=== PATIENT | male | born 1960 | race Caucasian/White ===

== ENCOUNTER 2017-05-16 17:15 | Emergency (ER) | payer SELFPAY ==
[~2017-05-16] VITALS: Ht 182.9 cm; Wt 99.8 kg
[2017-05-16 17:32] VITALS: BP 188/95
== END 2017-05-16 19:39 | disposition left against medical advice (07) ==
LOC: ER 17:37
DX: M79.672 Pain in left foot (principal); M79.671 Pain in right foot; Z53.21 Procedure and treatment not carried out due to patient leaving prior to being seen by health care provider

== ENCOUNTER 2017-05-21 08:59 | Emergency (ER) | payer MEDICAID ==
[~2017-05-21] VITALS: Ht 185.4 cm; Wt 99.8 kg
[2017-05-21 09:57] VITALS: BP 151/103
== END 2017-05-21 10:24 | disposition home or self-care (01) ==
LOC: ER 08:59
DX: E11.42 Type 2 diabetes mellitus with diabetic polyneuropathy (principal)

== ENCOUNTER 2018-12-31 09:05 | Emergency (ER) | payer MEDICAID ==
[~2018-12-31] VITALS: Ht 182.9 cm; Wt 108.9 kg
[2018-12-31 09:15] VITALS: BP 132/87
== END 2018-12-31 10:05 | disposition home or self-care (01) ==
LOC: ER 09:10
DX: M79.672 Pain in left foot (principal); M79.671 Pain in right foot; G89.29 Other chronic pain; E11.9 Type 2 diabetes mellitus without complications; Z76.0 Encounter for issue of repeat prescription

== ENCOUNTER 2019-02-02 12:46 | Emergency (ER) | payer MEDICAID ==
[~2019-02-02] VITALS: Ht 182.9 cm; Wt 108.9 kg
[2019-02-02 13:19] VITALS: BP 126/89
== END 2019-02-02 14:18 | disposition home or self-care (01) ==
LOC: ER 12:48
DX: M79.671 Pain in right foot (principal); M79.672 Pain in left foot; E11.9 Type 2 diabetes mellitus without complications; Z76.0 Encounter for issue of repeat prescription

== ENCOUNTER 2019-10-28 08:36 | Inpatient (IN) | payer MEDICAID ==
[~2019-10-28] VITALS: Ht 182.9 cm; Wt 109.0 kg
[2019-10-28] MEDS ORDERED: SODIUM CHLORIDE 0.9% 1,000 ML IV ONE ×2 (09:44)
[2019-10-28] MEDS ORDERED: PIPERACILLIN-TAZOB 3.375GM 100 ML IV ONE (09:45)
[2019-10-28 10:14] LABS: Basophils # (auto) 0 10 ^3/uL (0-0.2); Basophils % (auto) 0.3 % (0.0-2.0); Eosinophils # (auto) 0.1 10 ^3/uL (0-0.8); Eosinophils % (auto) 0.6 % (0.0-7.0); Hematocrit 40.1 % (41.0-53.0); Hemoglobin 13.5 g/dL (13.5-17.5); Lymphocytes # (auto) 1.2 10 ^3/uL (0.4-5.4); Lymphocytes % (auto) 7.8 % (10.0-50.0); Mean Corpuscular Hemoglobin 30.3 pg (28.0-32.0); Mean Corpuscular Hgb Conc. 33.6 g/dL (32.0-36.0); Monocytes # (auto) 1.4 10 ^3/uL (0-1.3); Neutrophils # (auto) 12.7 10 ^3/uL (1.6-8.6); Neutrophils % (auto) 82.3 % (37.0-80.0); Platelet Count (auto) 225 10^3/uL (140-450); Red Blood Cells 4.45 10^6/uL (4.5-5.90); White Blood Cell 15.5 10^3/uL (4.4-10.8)
[2019-10-28 10:30] LABS: INR 1.01 (0.9-1.15); Partial Thromboplastin Time 33.3 sec (23.64-32.05)
[2019-10-28 10:36] LABS: Albumin 3.2 g/dL (3.4-5.0); Anion Gap 7 (5-15); Blood Urea Nitrogen 20 mg/dL (7-18); Calcium 8.8 mg/dL (8.5-10.1); Carbon Dioxide 25 mmol/L (21-32); Chloride 103 mmol/L (98-107); Glucose 170 mg/dL (74-106); Potassium 4.8 mmol/L (3.5-5.1); Sodium 135 mmol/L (136-145)
[2019-10-28 10:42] LABS: Alanine Aminotransferase 21 U/L (16-61); Alkaline Phosphatase 89 U/L (45-117); Aspartate Aminotransferase 14 U/L (15-37); BUN/Creatinine Ratio 16.4; Bilirubin, Total 1.4 mg/dL (0.2-1.0); GFR African American 78 mL/min; GFR Non-African American 65 mL/min; Total Protein 8.4 g/dL (6.4-8.2)
[2019-10-28] MEDS ORDERED: SODIUM CHLORIDE 0.9% 1,000 ML IV SCH (10:56)
[2019-10-28] MEDS ORDERED: CLINDAMYCIN 900MG IV 50 ML IV ONE (11:00)
[2019-10-28] MEDS ORDERED: levoFLOXacin 500MG 100 ML IV ONE (11:00)
[2019-10-28] MEDS ORDERED: TETANUS-DIPTH-ACEL PERTUSSIS 0.5ML SYR Tdap IM ONE (11:00)
[2019-10-28] MEDS ORDERED: DEXTROSE (50%) 50ML SYRG IV PRN (11:00)
[2019-10-28] MEDS ORDERED: LACTULOSE 20Gm/30ML SOLN PO PRN (11:00)
[2019-10-28] MEDS ORDERED: ACETAMINOPHEN 500 MG TAB PO PRN (11:00)
[2019-10-28] MEDS ORDERED: traMADol HCL 50 MG TAB PO PRN (11:00)
[2019-10-28] MEDS ORDERED: PROMETHAZINE HCL 25 MG/ML 1ML IV PRN (11:00)
[2019-10-28] MEDS ORDERED: KETOROLAC TROMETH 30 MG/ML 1ML VIAL IV ONE (11:30)
[2019-10-28] MEDS ORDERED: KETOROLAC TROMETH 15 mg/ml 1ML VL IV PRN (11:30)
[2019-10-28] MEDS ORDERED: KETOROLAC TROMETH 30 MG/ML 1ML VIAL IV PRN (11:30)
[2019-10-28] MEDS ORDERED: KETOROLAC TROMETH 15 mg/ml 1ML VL IV ONE (11:30)
[2019-10-28] MEDS: InsuLIN REG 1unit/0.01ml Soln (100units/ml) SC SCH ×3 (11:30→21:31)
--- NOTE | 2019-10-28 12:00 | NUR ---
MS admit from ER VIVI MISHRA admitted to tele/MS after report was received. Patient oriented to GABRIELA GEORGE, primary RN, unit, room, bed, and unit policies regarding patient care and visiting hours. Patient weighed by bedscale and encouraged to call if they need something. All questions and concerns addressed, patient verbalized understanding.
[2019-10-28 13:00] VITALS: BP 146/76
[2019-10-28] MEDS: ACCU-CHEK COMFORT CURVE STRIP VI SCH ×3 (13:38→21:29)
--- NOTE | 2019-10-28 13:54 | NUR ---
Medications Patient does not know the names and doses of the medications he takes at home. He said he takes oral medication for diabetes and HTN.
[2019-10-28] MEDS: CLINDAMYCIN 600MG IV 50 ML IV SCH ×2 (14:12→21:26)
--- NOTE | 2019-10-28 15:00 | NUR ---
Left foot wound care Patient has an order for WOC consult and Podiatry consult. This nurse cleaned the area and covered it with a bandaid. Also covered with non-skid socks to protect the area further and also decrease risk of falls.
[2019-10-28 17:00] VITALS: BP 113/71
[2019-10-28] MEDS: SODIUM CHLORIDE 0.9% 1,000 ML IV SCH ×2 (17:41→21:28)
--- NOTE | 2019-10-28 18:20 | NUR ---
WOUND CARE NOTE: Wound care in to see patient per wound care request regarding "L Foot" wound that are noted present on admission. Patient is 59 years old male with admitting diagnosis of L Foot Cellulitis. Patient with history of DM and htn. Patient is resting in bed in Rm. 283. Patient is awake, alert and oriented. Patient is in no stated pain at this time. He's ambulatory and self turning and repositioning. His Arnel score is 17. Skin/wound assessment done with assistance of patient's nurse, ALLYSSA piña. Patient's distal L plantar foot at metatarsal head has open full thickness wound measuring 3x1cm with no measurable depth. Wound is red with yellow slough, diallo wound is bright red and edematous more prominently in dorsal aspect of L foot. Minimal serous drainage noted, no odor noted. Pedal pulse present. Patient reported that he stepped on a nail and it went trough his shoes. He added that "about half an inch" goes trough his plantar foot, however it looks like the wound closed and no measurable depth when probed with cotton tip swab. Cleansed patient's L foot wound with NS. Bedside nurse took specimen for wound culture and sent to lab for processing. Photograph of patient's wound are taken for reference. Applied Thera honey gel to open wound area and covered with Opti foam gentle dressing per MD order. Patient tolerated well and denies any other wound. Patient has podiatry consult order. RECOMMENDATION: Nursing to continue with Daily/PRN dressing change to L foot wound per MD order,Dietary consult for wound, elevate affected extremity on pillow, continue monitoring by wound care while patient is hospitalized. Addendum: 10/28/19 at 1849 by Samantha Sorto RN Amended: Links added.
--- NOTE | 2019-10-28 19:00 | NUR ---
OPENING NOTE PATIENT IN BED, RESTING, DENIES DISCOMFORT. PATIENT WAS WORRY ABOUT HIS TRUCK ON THE PARKING LOT, CALLED SECURITY TO MAKE SURE HIS TRUCK WAS NOT GOING TO BE TOWED AWAY. PATIENT WAS A LOT MORE CALM AFTER THIS WAS HANDLE. CALL LIGHT WITH IN REACH, BED ON LOWEST POSITION.
[2019-10-28 21:50] VITALS: BP 126/67
[2019-10-29] MEDS: CLINDAMYCIN 600MG IV 50 ML IV SCH ×2 (05:20→15:00)
[2019-10-29 05:24] VITALS: BP 130/73
[2019-10-29] MEDS: InsuLIN REG 1unit/0.01ml Soln (100units/ml) SC SCH ×3 (06:07→17:36)
[2019-10-29] MEDS: ACCU-CHEK COMFORT CURVE STRIP VI SCH ×3 (06:07→17:31)
[2019-10-29 07:27] LABS: Basophils # (auto) 0.1 10 ^3/uL (0-0.2); Basophils % (auto) 0.6 % (0.0-2.0); Eosinophils # (auto) 0.1 10 ^3/uL (0-0.8); Eosinophils % (auto) 0.8 % (0.0-7.0); Hematocrit 36.8 % (41.0-53.0); Hemoglobin 12.5 g/dL (13.5-17.5); Lymphocytes # (auto) 1.3 10 ^3/uL (0.4-5.4); Lymphocytes % (auto) 11.7 % (10.0-50.0); Mean Corpuscular Hemoglobin 30.2 pg (28.0-32.0); Mean Corpuscular Hgb Conc. 33.9 g/dL (32.0-36.0); Mean Corpuscular Volume 89.1 fL (80.0-100.0); Monocytes # (auto) 0.9 10 ^3/uL (0-1.3); Monocytes % (auto) 7.5 % (0.0-12.0); Neutrophils # (auto) 9.1 10 ^3/uL (1.6-8.6); Neutrophils % (auto) 79.4 % (37.0-80.0); Nucleated Red Blood Cells % 0.2 %; Platelet Count (auto) 237 10^3/uL (140-450); Red Blood Cells 4.13 10^6/uL (4.5-5.90); White Blood Cell 11.5 10^3/uL (4.4-10.8)
[2019-10-29 09:00] VITALS: BP 123/63
[2019-10-29] MEDS ORDERED: levoFLOXacin 500MG 100 ML IV SCH (10:00)
[2019-10-29] MEDS: SODIUM CHLORIDE 0.9% 1,000 ML IV SCH (11:48)
[2019-10-29 13:00] VITALS: BP 134/70
[2019-10-29] MEDS ORDERED: SODIUM CHLORIDE 0.9% 1,000 ML IV SCH (14:00)
[2019-10-29 16:30] VITALS: BP 136/78
--- NOTE | 2019-10-29 19:21 | NUR ---
PATIENT ASKED TO LEAVE AMA, BEFORE I WAS EVEN ABLE TO FINISH MY ROUNDS. AMA FORM SIGNED BY PATIENT, AND REPORTED TO SASHCA MEDRANO.
[2019-10-29] MEDS ORDERED: DAKINS QUARTER STR 0.125% (NaHypochlorite) 473 ML TOPICAL SOL TOP SCH (22:00)
== END 2019-10-29 19:21 | disposition left against medical advice (07) | DRG 720 ==
LOC: ER 08:36 → OVERFLOW 08:37 → WEST WING 11:48
PROVIDERS: ADMIT Internal Medicine; ATTEND Internal Medicine
PROC: 0Y9N0ZX Drainage of Left Foot, Open Approach, Diagnostic (ICD-10-PCS; principal; 2019-10-29)
DX: A41.9 Sepsis, unspecified organism (principal); E11.40 Type 2 diabetes mellitus with diabetic neuropathy, unspecified; E11.621 Type 2 diabetes mellitus with foot ulcer; L97.502 Non-pressure chronic ulcer of other part of unspecified foot with fat layer exposed; L03.116 Cellulitis of left lower limb; E66.9 Obesity, unspecified; X58.XXXA Exposure to other specified factors, initial encounter; I10 Essential (primary) hypertension; Z79.899 Other long term (current) drug therapy; Y92.89 Other specified places as the place of occurrence of the external cause; S91.332A Puncture wound without foreign body, left foot, initial encounter
CPT/HCPCS: 36415; 71045; 73700; 80053; 82962; 83036; 83605; 84484; 85025; 85610; 85652; 85730; 87040; 87077; 87186; 87205; 90471; 90715; 96365; G0378; J1815; J1885; J1956; J2543; J3490

== ENCOUNTER 2019-11-01 11:20 | Inpatient (IN) | payer MEDICAID ==
[~2019-11-01] VITALS: Ht 182.9 cm; Wt 105.2 kg
[2019-11-01] MEDS ORDERED: SODIUM CHLORIDE 0.9% 500 ML IV ONE (12:01)
[2019-11-01] MEDS ORDERED: CLINDAMYCIN 600MG IV 50 ML IV ONE (12:15)
[2019-11-01] MEDS ORDERED: MORPHINE SULFATE 4 MG/ML SYR/VIAL IV ONE (12:15)
[2019-11-01] MEDS ORDERED: ONDANSETRON HCL 4 MG/2 ML VIAL IV ONE (12:15)
[2019-11-01 12:53] LABS: Basophils # (auto) 0 10 ^3/uL (0-0.2); Basophils % (auto) 0.4 % (0.0-2.0); Eosinophils # (auto) 0.3 10 ^3/uL (0-0.8); Eosinophils % (auto) 2.8 % (0.0-7.0); Hematocrit 39.7 % (41.0-53.0); Hemoglobin 13.2 g/dL (13.5-17.5); Lymphocytes # (auto) 1.4 10 ^3/uL (0.4-5.4); Lymphocytes % (auto) 14.3 % (10.0-50.0); Mean Corpuscular Hemoglobin 29.7 pg (28.0-32.0); Mean Corpuscular Hgb Conc. 33.2 g/dL (32.0-36.0); Mean Corpuscular Volume 89.5 fL (80.0-100.0); Monocytes # (auto) 0.9 10 ^3/uL (0-1.3); Monocytes % (auto) 9.2 % (0.0-12.0); Neutrophils # (auto) 7.3 10 ^3/uL (1.6-8.6); Neutrophils % (auto) 73.3 % (37.0-80.0); Platelet Count (auto) 313 10^3/uL (140-450); Red Blood Cells 4.44 10^6/uL (4.5-5.90); Red Cell Distribution Width 13.8 % (11.8-14.3)
[2019-11-01] MEDS ORDERED: MORPHINE SULF INJ 2 MG/ML SYRINGE 1ML IV PRN ×2 (13:00)
[2019-11-01] MEDS ORDERED: NITROGLYCERIN 0.4 MG SL TAB SL PRN (13:00)
[2019-11-01] MEDS ORDERED: VANCOMYCIN PER PHARMACY 0 MG IV SCH (13:00)
[2019-11-01] MEDS ORDERED: DEXTROSE (50%) 50ML SYRG IV PRN (13:00)
[2019-11-01] MEDS ORDERED: ACETAMINOPHEN 500 MG TAB PO PRN (13:00)
[2019-11-01] MEDS ORDERED: hydrALAZINE HCL 20 MG/ML VL IV PRN (13:00)
[2019-11-01] MEDS ORDERED: ONDANSETRON HCL 4 MG/2 ML VIAL IV PRN (13:00)
[2019-11-01] MEDS: SODIUM CHLORIDE 0.9% 1,000 ML IV SCH (13:15)
[2019-11-01 13:19] LABS: Albumin 2.8 g/dL (3.4-5.0); BUN/Creatinine Ratio 17.9; Calcium 8.6 mg/dL (8.5-10.1); Potassium 4.1 mmol/L (3.5-5.1)
[2019-11-01 13:22] LABS: Bilirubin, Total 0.4 mg/dL (0.2-1.0); Total Protein 8.3 g/dL (6.4-8.2)
[2019-11-01] MEDS: GABAPENTIN 100 MG CAP PO SCH ×2 (14:36→21:12)
[2019-11-01 15:16] LABS: Alcohol, Urine < 3.0 mg/dL (0-5); Amphetamine Screen, Urine NEGATIVE (NEGATIVE); Barbiturate Scree,Urine NEGATIVE (NEGATIVE); Benzodiazephine Screen, Urine POSITIVE (NEGATIVE); Cannabinoid Screen, Urine NEGATIVE (NEGATIVE); Cocaine Screen, Urine NEGATIVE (NEGATIVE); Opiate Scree,Urine POSITIVE (NEGATIVE); Phencyclidine Screen, Urine NEGATIVE (NEGATIVE)
[2019-11-01 15:38] LABS: Urine Bacteria NONE SEEN /hpf (None Seen); Urine Blood Negative /uL (Negative); Urine Mucus FEW (None Seen); Urine Specific Gravity 1.017 (1.001-1.035); Urine WBC 1 /hpf (0 - 3)
--- NOTE | 2019-11-01 15:38 | NUR ---
Telemetry admit from ER VIVI MISHRA admitted to Telemetry unit after SBAR received. Patient oriented to RICCARDO PAREKH RN primary RN, unit, room, bed, and unit policies regarding patient care and visiting hours. Patient now on continuous telemetry monitoring, tele box #[id number] and telemetry reading on arrival to unit is SR. Patient placed on bedside oxygen, weighed by bedscale and encouraged to call if they need something. All questions and concerns addressed, patient verbalized understanding.
[2019-11-01 17:00] VITALS: BP 132/71
[2019-11-01] MEDS: InsuLIN REG 1unit/0.01ml Soln (100units/ml) SC SCH ×2 (17:00→21:12)
[2019-11-01] MEDS: ACCU-CHEK COMFORT CURVE STRIP VI SCH ×2 (17:18→21:12)
[2019-11-01] MEDS: VANCOMYCIN 1GM/250ML 250 ML IV SCH (17:30)
[2019-11-01] MEDS: HYDROcodone-ACET 5/325MG TAB PO PRN (21:13)
--- NOTE | 2019-11-01 21:15 | NUR ---
PAIN PATIENT C/O 01/13 LEFT FOOT PAIN REQUESTING PAIN MEDICATION. ADMINISTERED NORCO 5/325MG PO PRESCRIBED. WILL CONTINUE TO MONITOR PATIENT. PATIENT HAS DRESSING TO LEFT FOOT CLEAN DRY AND INTACT. PATIENT DAKINES SOLUTION NO WHERE TO BE FOUND. PATIENT STATES THERE WAS NOT DAKINES SOLUTION LET BEHIND. WILL CONTINUE TO MONITOR PATIENT.
[2019-11-01 22:00] VITALS: BP 109/68
[2019-11-02] MEDS: SODIUM CHLORIDE 0.9% 1,000 ML IV SCH ×2 (02:20→15:40)
[2019-11-02] MEDS: VANCOMYCIN 1GM/250ML 250 ML IV SCH ×2 (05:00→18:09)
[2019-11-02 05:01] VITALS: BP 110/68
[2019-11-02] MEDS: GABAPENTIN 100 MG CAP PO SCH ×3 (06:11→21:49)
[2019-11-02] MEDS: HYDROcodone-ACET 5/325MG TAB PO PRN (06:11)
[2019-11-02] MEDS: InsuLIN REG 1unit/0.01ml Soln (100units/ml) SC SCH ×4 (06:21→22:00)
[2019-11-02] MEDS: ACCU-CHEK COMFORT CURVE STRIP VI SCH ×4 (06:21→22:00)
--- NOTE | 2019-11-02 06:54 | NUR ---
PAIN PATIENT C/O /10 LEFT FOOT PAIN REQUESTING PAIN MEDICATION. ADMINISTERED NORCO 5/325MG PO PRESCRIBED. WILL CONTINUE TO MONITOR PATIENT.
--- NOTE | 2019-11-02 07:25 | NUR ---
ROUNDS/STATUS PT SITTING IN BED AWAKE A&O SPEAKING ON THE PHONE. PT STATES HES IN NO PAIN AFTER HIS LAST PAIN MEDICATION ADMINISTRATION. POC REVIEWED AND WHITE BOARD FILLED OUT. BED IN LOW POSITION AND CALL LIGHT IN PLACE. WILL CONTINUE TO MONITOR
[2019-11-02 09:00] VITALS: BP 113/67
[2019-11-02] MEDS: FAMOTIDINE 20 MG TAB PO SCH (10:00)
[2019-11-02] MEDS: amLODIPine BESYLATE 5 MG TAB PO SCH (10:00)
--- NOTE | 2019-11-02 11:18 | NUR ---
REFUSED MEDICATIONS PT REFUSED NORVASC AND PEPCID STATING HES NOT WANTING TO TAKE THEM THEY MAKE "ME SICK". EDUCATED ON POC AND WILL OFFER AGAIN AT A LATER TIME
--- NOTE | 2019-11-02 11:50 | NUR ---
WOUND CARE NOTE: Wound care in to see patient per wound care request regarding "L Foot DM wound" that are noted present on admission. Bedside nurse took photograph of patient's wound upon admission for reference. Patient is 59 years old male with admitting diagnosis of L Foot DM Wound, Cellulitis with MRSA. Patient is resting in bed in Rm. 282. Patient is awake, alert and oriented. He's in no stated pain at this time. He's ambulatory and self turning and repositioning. His Arnel score is 20. Patient is seen by Dr. Jones yesterday had bedside I&D and debridement of L Foot DFU. Removed patient's L foot wound dressing. Packing noted on bed, must have came off. Patient's distal L medial plantar foot wound measuring 1.5x3.2x0.3cm. Wound is red with pink diallo wound and bright red with mild edema noted to dorsal aspect of L foot. Minimal serosanguineous drainage noted, no odor noted. Pedal pulse present. Patient reported that wound started when he stepped on a nail and it went trough his shoes "about half an inch" goes trough his plantar foot. Cleansed patient's L foot wound with 1/4 strength Dakins solution, covered with WTD 4x4's gauze and Dakins solution, wrapped with Kerlix and secured with tape per MD order. Patient tolerated well and denies any other wound. No further wound care monitoring needed at this time. RECOMMENDATION: Nursing to continue with Daily dressing change to L foot wound per MD order,Dietary consult for wound, elevate affected extremity on pillow. Addendum: 11/02/19 at 1644 by Samantha Sorto RN Amended: Links added.
--- NOTE | 2019-11-02 11:51 | NUR ---
WOUND CARE AT BEDSIDE WOUND SUPERFICIAL AND UNABLE TO PACK, WTD DRESSING PLACED
[2019-11-02] MEDS: DAKINS QUARTER STR 0.125% (NaHypochlorite) 473 ML TOPICAL SOL TOP SCH (11:52)
[2019-11-02 13:00] VITALS: BP 116/71
[2019-11-02 17:00] VITALS: BP 118/71
[2019-11-02] MEDS ORDERED: ERGO1CAP23 PO (17:45)
[2019-11-02] MEDS ORDERED: METF-929 PO (17:45)
[2019-11-02] MEDS ORDERED: PREG50CA PO (17:45)
[2019-11-02] MEDS ORDERED: ALPR0.5T3 PO (17:45)
[2019-11-02] MEDS ORDERED: MELO1TAB73 PO (17:45)
[2019-11-02] MEDS ORDERED: GABA800T97 PO (17:45)
[2019-11-02] MEDS ORDERED: SIMV-8 PO (17:45)
[2019-11-02] MEDS ORDERED: SERT-160 PO (17:45)
[2019-11-02] MEDS ORDERED: LISI2.5T47 PO (17:45)
[2019-11-02] MEDS ORDERED: ALBUAER3 IN (17:45)
--- NOTE | 2019-11-02 18:28 | NUR ---
REFUSAL OF TELE PT CONTINUES TO REFUSE TELE. TELE UNIT AWARE. WILL CONTINUE TO EDUCATE AND REASSESS.
--- NOTE | 2019-11-02 18:29 | NUR ---
REFUSAL OF MEDICATIONS PT CONTINUES TO REFUSE MEDICATION, STATES NOT WILLING TO COVER CURRENT GLUCOSE
--- NOTE | 2019-11-02 20:30 | NUR ---
PLACED PATIENT BACK ON TELEMETRY.
--- NOTE | 2019-11-02 21:30 | NUR ---
PATIENT STATES IV ACCESS TO LEFT HAND IS PAINFUL AND WANTS IT OUT. REMOVED IV ACCESS TO LEFT HAND CATHETER TIP STILL INTACT AND PRESSURE DRESSING APPLIED. ATTEMPTED TO INSERT IV ACCESS WITH NO SUCCESS PATIENT STATES HE NEEDS A BREAK TO INSERT PRIOR TO ADMINISTRATION OF VANCOMYCIN.
[2019-11-02 22:00] VITALS: BP 140/75
--- NOTE | 2019-11-03 04:45 | NUR ---
ATTEMPTED TO INSERT IV ACCESS, BUT UNSUCCESSFUL. PATIENT IS TENSE AND IS UNABLE TO RELAX DURING IV INSERTION. WILL ATTEMPT IN A FEW MINUTES. AWAITING VANC TROUGH
[2019-11-03 05:00] VITALS: BP 112/73
[2019-11-03] MEDS: SODIUM CHLORIDE 0.9% 1,000 ML IV SCH (05:00)
[2019-11-03] MEDS: VANCOMYCIN 1GM/250ML 250 ML IV SCH (05:00)
[2019-11-03] MEDS: GABAPENTIN 100 MG CAP PO SCH (06:00)
[2019-11-03] MEDS: InsuLIN REG 1unit/0.01ml Soln (100units/ml) SC SCH (06:06)
[2019-11-03] MEDS: ACCU-CHEK COMFORT CURVE STRIP VI SCH (06:06)
--- NOTE | 2019-11-03 06:10 | NUR ---
ATTEMPTED TO INSERT IV ACCESS WITH VEIN FINDER WITH NO SUCCESS. PATIENT HAS ANXIETY AND IS DIFFICULT TO INSERT IV ACCESS. PATIENT IN ON IV VANCOMYCIN AND POSSIBLE WILL GO HOME ON IV ABT. PLACED ORDER FOR MIDLINE.
--- NOTE | 2019-11-03 07:46 | NUR ---
Patient refusing to get new iv access. Patient wants to wait until he speaks with MD, and wants to go home today.
--- NOTE | 2019-11-03 08:20 | NUR ---
patient refusing to wear tele box. educated patient on the need for telemetry monitoring. patient verbalized understanding still refused to wear.
[2019-11-03 09:00] VITALS: BP 132/79
--- NOTE | 2019-11-03 09:19 | NUR ---
assessment No post discharge needs identified. Addendum: 11/03/19 at 0920 by Mary HARRIS Amended: Links added.
--- NOTE | 2019-11-03 09:40 | NUR ---
Wound care done on on left great toe and plantar area. no complaints of pain.
[2019-11-03] MEDS: FAMOTIDINE 20 MG TAB PO SCH (10:15)
[2019-11-03] MEDS: amLODIPine BESYLATE 5 MG TAB PO SCH (10:15)
[2019-11-03] MEDS: DAKINS QUARTER STR 0.125% (NaHypochlorite) 473 ML TOPICAL SOL TOP SCH (10:16)
--- NOTE | 2019-11-03 10:50 | NUR ---
Paged Dr. Pham
[2019-11-03] MEDS ORDERED: SODIUM CHLORIDE 0.9% 1,000 ML IV SCH (11:15)
--- NOTE | 2019-11-03 11:30 | NUR ---
AMA Note VIVI MISHRA states they want to leave the hospital Against Medical Advice (AMA). Patient encouraged to stay for further treatment/stabilization. Dr. Garcia notified of patient's wishes. Patient advised of the risks and benefits of leaving AMA. Dr. Garcia at bedside and discussed at length the risks of the patient leaving without getting IV antibiotics Patient verbalized understanding. Patient encouraged to return to the ER if symptoms do not improve or worsen.
--- NOTE | 2019-11-03 12:00 | NUR ---
Dr. Garcia Notified that patient left AMA.
[2019-11-03] MEDS ORDERED: VANCOMYCIN 1GM/250ML 250 ML IV SCH (13:00)
[2019-11-03] MEDS ORDERED: MUPIROCIN 2% OINT 15gm or 22gm EACHNOSTRI SCH (22:00)
== END 2019-11-03 11:35 | disposition left against medical advice (07) | DRG 344 ==
LOC: ER 11:20 → TELE 11:21 → TELE-WESTW 15:42
PROVIDERS: ADMIT Nurse Practitioner Acute Care; ATTEND Internal Medicine
PROC: 0JBR0ZZ Excision of Left Foot Subcutaneous Tissue and Fascia, Open Approach (ICD-10-PCS; principal; 2019-11-01)
DX: E11.69 Type 2 diabetes mellitus with other specified complication (principal); M86.8X7 Other osteomyelitis, ankle and foot; E11.40 Type 2 diabetes mellitus with diabetic neuropathy, unspecified; E11.621 Type 2 diabetes mellitus with foot ulcer; L03.116 Cellulitis of left lower limb; L97.522 Non-pressure chronic ulcer of other part of left foot with fat layer exposed; E11.628 Type 2 diabetes mellitus with other skin complications; B95.62 Methicillin resistant Staphylococcus aureus infection as the cause of diseases classified elsewhere; E66.9 Obesity, unspecified; L02.611 Cutaneous abscess of right foot; I10 Essential (primary) hypertension; Z79.84 Long term (current) use of oral hypoglycemic drugs; Z91.19 Patient's noncompliance with other medical treatment and regimen; Z79.899 Other long term (current) drug therapy; Z79.51 Long term (current) use of inhaled steroids; Z68.31 Body mass index [BMI] 31.0-31.9, adult
CPT/HCPCS: 36415; 73718; 80053; 80202; 80307; 81001; 82565; 82962; 83605; 85025; 85652; 87081; 93926; 96365; 96366; 96375; G0378; J1815; J2405; J3490

== ENCOUNTER 2022-10-25 08:30 | Emergency (ER) | payer MEDICAID ==
[~2022-10-25] VITALS: Ht 182.9 cm; Wt 113.2 kg
[~2022-10-25 08:30] MED LIST: ALBUAER3 IN; ALPR0.5T3 PO; ERGO1CAP23 PO; GABA800T97 PO; LISI2.5T47 PO; MELO1TAB73 PO; METF-929 PO; PREG50CA PO; SERT-160 PO; SIMV-8 PO
[2022-10-25 08:35] VITALS: BP 157/93
[2022-10-25 08:55] LABS: Basophils # (auto) 0.1 10 ^3/uL (0-0.2); Basophils % (auto) 0.8 % (0.0-2.0); Eosinophils # (auto) 0.3 10 ^3/uL (0-0.8); Eosinophils % (auto) 4.9 % (0.0-7.0); Hematocrit 44.9 % (41.0-53.0); Hemoglobin 15.6 g/dL (13.5-17.5); Lymphocytes # (auto) 2.7 10 ^3/uL (0.4-5.4); Lymphocytes % (auto) 38.3 % (10.0-50.0); Mean Corpuscular Hemoglobin 30.4 pg (28.0-32.0); Mean Corpuscular Hgb Conc. 34.7 g/dL (32.0-36.0); Mean Corpuscular Volume 87.7 fL (80.0-100.0); Monocytes # (auto) 0.5 10 ^3/uL (0-1.3); Monocytes % (auto) 7.4 % (0.0-12.0); Neutrophils # (auto) 3.4 10 ^3/uL (1.6-8.6); Neutrophils % (auto) 48.6 % (37.0-80.0); Nucleated Red Blood Cells % 0.1 %; Red Blood Cells 5.12 10^6/uL (4.5-5.90); Red Cell Distribution Width 13.4 % (11.8-14.3)
[2022-10-25 09:13] LABS: INR 0.92 (0.9-1.15); Partial Thromboplastin Time 26.6 sec (24.6-33.4)
[2022-10-25 09:27] LABS: Albumin 3.8 g/dL (3.4-5.0); BUN/Creatinine Ratio 19.3 (10.0-20.0); Calcium 9.3 mg/dL (8.5-10.1); Potassium 3.9 mmol/L (3.5-5.1)
[2022-10-25 09:29] LABS: Bilirubin, Total 0.6 mg/dL (0.2-1.0); Total Protein 8.3 g/dL (6.4-8.2)
== END 2022-10-25 09:42 | disposition left against medical advice (07) ==
LOC: ER 08:30
DX: R07.89 Other chest pain (principal); I10 Essential (primary) hypertension; E11.9 Type 2 diabetes mellitus without complications; Z79.899 Other long term (current) drug therapy; Z79.84 Long term (current) use of oral hypoglycemic drugs
CPT/HCPCS: 36415; 71045; 80053; 83735; 84484; 85025; 85610; 85730; 93005

== ENCOUNTER 2022-10-29 07:52 | Inpatient (IN) | payer MEDICAID ==
[~2022-10-29] VITALS: Ht 188 cm; Wt 117.2 kg
[2022-10-29 08:23] LABS: Basophils # (auto) 0.1 10 ^3/uL (0-0.2); Basophils % (auto) 0.7 % (0.0-2.0); Eosinophils # (auto) 0.3 10 ^3/uL (0-0.8); Eosinophils % (auto) 4.1 % (0.0-7.0); Hematocrit 44.8 % (41.0-53.0); Hemoglobin 15.6 g/dL (13.5-17.5); Lymphocytes # (auto) 2.4 10 ^3/uL (0.4-5.4); Lymphocytes % (auto) 29.5 % (10.0-50.0); Mean Corpuscular Hgb Conc. 34.9 g/dL (32.0-36.0); Monocytes # (auto) 0.6 10 ^3/uL (0-1.3); Monocytes % (auto) 7.6 % (0.0-12.0); Neutrophils # (auto) 4.6 10 ^3/uL (1.6-8.6); Neutrophils % (auto) 58.1 % (37.0-80.0); Nucleated Red Blood Cells % 0.2 %; Red Blood Cells 5.03 10^6/uL (4.5-5.90); Red Cell Distribution Width 13.2 % (11.8-14.3)
[2022-10-29 08:32] LABS: Urine Bacteria NONE SEEN /hpf (None Seen); Urine Blood Negative /uL (Negative); Urine Mucus FEW (None Seen); Urine Specific Gravity 1.026 (1.001-1.035); Urine WBC 1 /hpf (0 - 3)
[2022-10-29 08:37] LABS: INR 0.95 (0.9-1.15); Partial Thromboplastin Time 30.3 sec (24.6-33.4)
[2022-10-29 08:46] LABS: Albumin 3.9 g/dL (3.4-5.0); Calcium 9.1 mg/dL (8.5-10.1); Potassium 4.6 mmol/L (3.5-5.1)
[2022-10-29 08:52] LABS: BUN/Creatinine Ratio 19.3 (10.0-20.0); Bilirubin, Total 0.6 mg/dL (0.2-1.0); Total Protein 7.9 g/dL (6.4-8.2)
[2022-10-29] MEDS ORDERED: ASPirin 325 MG TAB PO ONE (12:15)
[2022-10-29] MEDS ORDERED: NITROGLYCERIN 0.4 MG SL TAB SL ONE (12:15)
[2022-10-29] MEDS ORDERED: MORPHINE SULFATE INJ 2 MG/ml SYRG IV PRN ×2 (14:30)
[2022-10-29] MEDS ORDERED: HYDROcodone-ACET 5/325MG TAB PO PRN (14:30)
[2022-10-29] MEDS ORDERED: hydrALAZINE HCL 20 MG/ML VL IV PRN (14:30)
[2022-10-29] MEDS ORDERED: ACETAMINOPHEN 325 MG TAB PO PRN (14:30)
[2022-10-29] MEDS ORDERED: DEXTROSE (50%) 50ML SYRG IV PRN (14:30)
[2022-10-29] MEDS ORDERED: NITROGLYCERIN 0.4 MG SL TAB SL PRN (14:30)
[2022-10-29 14:47] LABS: Cholesterol 174 mg/dL (< 200); HDL Cholesterol 43 mg/dL (40-59); LDL Cholesterol 114 mg/dL (< 100); Triglycerides 162 mg/dL (< 150)
[2022-10-29 15:12] LABS: Alcohol, Urine < 3.0 mg/dL (0-10); Amphetamine Screen, Urine NEGATIVE (NEGATIVE); Barbiturate Scree,Urine NEGATIVE (NEGATIVE); Benzodiazephine Screen, Urine NEGATIVE (NEGATIVE); Cannabinoid Screen, Urine NEGATIVE (NEGATIVE); Cocaine Screen, Urine NEGATIVE (NEGATIVE); Phencyclidine Screen, Urine NEGATIVE (NEGATIVE)
[2022-10-29] MEDS: ENOXAPARIN SOD 120 MG/0.8 ML SYRINGE SC SCH (16:15)
[2022-10-29] MEDS: ATORVASTATIN 20 MG TAB PO SCH (16:15)
[2022-10-29 16:16] LABS: Opiate Scree,Urine NEGATIVE (NEGATIVE)
[2022-10-29] MEDS: ACCU-CHEK COMFORT CURVE STRIP VI SCH (18:54)
[2022-10-29] MEDS: InsuLIN REG 1unit/0.01ml Soln (100units/ml) SC SCH (18:55)
[2022-10-29] MEDS ORDERED: PATIENTS OWN MEDICATION (Sertraline Hcl 1 TAB) PO SCH (22:00)
[2022-10-29] MEDS ORDERED: PATIENTS OWN MEDICATION (Gabapentin 800 MG) PO SCH (22:00)
[2022-10-29] MEDS: SODIUM CHLORIDE 0.9% 1,000 ML IV SCH (22:15)
[2022-10-30] MEDS: ACCU-CHEK COMFORT CURVE STRIP VI SCH ×5 (00:02→21:32)
[2022-10-30] MEDS: InsuLIN REG 1unit/0.01ml Soln (100units/ml) SC SCH ×5 (00:03→21:32)
[2022-10-30] MEDS: ATORVASTATIN 20 MG TAB PO SCH ×2 (00:06→21:31)
[2022-10-30] MEDS: METOPROLOL SUCCINATE XL 50 MG TAB PO SCH ×3 (00:06→21:32)
[2022-10-30] MEDS: SODIUM CHLORIDE 0.9% 1,000 ML IV SCH ×4 (00:06→17:55)
[2022-10-30] MEDS: GABAPENTIN 400 MG CAP PO SCH ×3 (00:06→21:31)
[2022-10-30] MEDS: ENOXAPARIN SOD 120 MG/0.8 ML SYRINGE SC SCH ×3 (00:07→21:31)
[2022-10-30] MEDS: SERTRALINE HCL 50 MG TAB PO SCH ×3 (00:07→21:31)
[2022-10-30] MEDS ORDERED: ADENOSINE 99 MG in GIVE UN-DILUTED 0 ML IV ONE (07:45)
[2022-10-30 09:30] VITALS: BP 123/64
[2022-10-30] MEDS ORDERED: PATIENTS OWN MEDICATION (Pregabalin (Lyrica) 1 CAP) PO SCH (10:00)
[2022-10-30] MEDS: ASPirin 81 mg TAB PO SCH (10:49)
[2022-10-30] MEDS: PREGABALIN 25 MG CAP PO SCH (10:49)
[2022-10-30] MEDS ORDERED: OPTISON 3ml Vial for INJ IV ONE (11:23)
[2022-10-30] MEDS ORDERED: INFLUENZA QUAD 2022-2023 0.5 ML SYRG IM ONE (16:15)
[2022-10-30] MEDS ORDERED: ATOR20TA50 PO (16:27)
[2022-10-30] MEDS ORDERED: HYDR-4902 (16:27)
[2022-10-30 17:00] VITALS: BP 137/81
[2022-10-30 22:00] VITALS: BP 133/70
[2022-10-31] VITALS (18 sets, daily range): BP systolic 114–174; BP diastolic 61–122
[2022-10-31] MEDS: SODIUM CHLORIDE 0.9% 1,000 ML IV SCH ×3 (06:06→21:52)
[2022-10-31] MEDS: InsuLIN REG 1unit/0.01ml Soln (100units/ml) SC SCH ×4 (06:06→21:51)
[2022-10-31] MEDS: ACCU-CHEK COMFORT CURVE STRIP VI SCH ×4 (06:06→21:52)
[2022-10-31] MEDS: METOPROLOL SUCCINATE XL 50 MG TAB PO SCH ×2 (10:00→21:51)
[2022-10-31] MEDS: ENOXAPARIN SOD 120 MG/0.8 ML SYRINGE SC SCH ×2 (10:00→21:52)
[2022-10-31] MEDS ORDERED: LORazepam 2MG/ML-1ML VIAL IV PRN (10:30)
[2022-10-31] MEDS: GABAPENTIN 400 MG CAP PO SCH ×2 (11:40→21:50)
[2022-10-31] MEDS: PREGABALIN 25 MG CAP PO SCH (11:41)
[2022-10-31] MEDS: SERTRALINE HCL 50 MG TAB PO SCH ×2 (11:43→21:51)
[2022-10-31] MEDS: ASPirin 81 mg TAB PO SCH (11:44)
[2022-10-31] MEDS ORDERED: LIDOCAINE 2%HCL (LOCAL ANESTH.) INJ 20ML MDV ONE (14:31)
[2022-10-31] MEDS ORDERED: IODIXANOL 320MG/ML 100ML BTL IV ONE (14:31)
[2022-10-31] MEDS ORDERED: fentaNYL CITRATE 100 MCG/2 ML VL ONE (14:41)
[2022-10-31] MEDS ORDERED: MIDAZOLAM HCL 2MG/2ML 2ml VIAL (1mg/ml) ONE (14:41)
[2022-10-31] MEDS ORDERED: VERAPAMIL 2.5MG/ML INJ 2ML VIAL IV ONE (14:41)
[2022-10-31] MEDS ORDERED: HEPARIN SODIUM (PORCINE) 5000 UNITS/ML 1ML VIAL ONE (14:41)
[2022-10-31] MEDS ORDERED: ANGIOMAX 250 MG VIAL IV ONE (14:41)
[2022-10-31] MEDS ORDERED: SODIUM CHL 0.9% 0 ML ONE (14:42)
[2022-10-31] MEDS: ATORVASTATIN 20 MG TAB PO SCH (21:51)
[2022-11-01 05:00] VITALS: BP 141/77
[2022-11-01] MEDS: ACCU-CHEK COMFORT CURVE STRIP VI SCH ×2 (06:29→11:30)
[2022-11-01] MEDS: InsuLIN REG 1unit/0.01ml Soln (100units/ml) SC SCH ×2 (06:29→11:30)
[2022-11-01] MEDS: SODIUM CHLORIDE 0.9% 1,000 ML IV SCH (06:29)
[2022-11-01 09:00] VITALS: BP 162/90
[2022-11-01] MEDS: ASPirin 81 mg TAB PO SCH (09:33)
[2022-11-01] MEDS: METOPROLOL SUCCINATE XL 50 MG TAB PO SCH (09:33)
[2022-11-01] MEDS: PREGABALIN 25 MG CAP PO SCH (09:33)
[2022-11-01] MEDS: GABAPENTIN 400 MG CAP PO SCH (09:34)
[2022-11-01] MEDS: SERTRALINE HCL 50 MG TAB PO SCH (09:34)
[2022-11-01] MEDS: ENOXAPARIN SOD 120 MG/0.8 ML SYRINGE SC SCH ×2 (09:36→09:53)
[2022-11-01 11:33] VITALS: BP 140/89
== END 2022-11-01 12:42 | disposition home or self-care (01) | DRG 191 ==
LOC: ER 07:52 → TELE 14:26 → TELE-WESTW 10-30 16:00
PROVIDERS: ADMIT Registered Nurse; ATTEND Family Medicine
PROC: 4A023N7 Measurement of Cardiac Sampling and Pressure, Left Heart, Percutaneous Approach (ICD-10-PCS; principal; 2022-10-31)
PROC: B211YZZ Fluoroscopy of Multiple Coronary Arteries using Other Contrast (ICD-10-PCS; 2022-10-31)
DX: I25.110 Atherosclerotic heart disease of native coronary artery with unstable angina pectoris (principal); I24.9 Acute ischemic heart disease, unspecified; E11.22 Type 2 diabetes mellitus with diabetic chronic kidney disease; E66.01 Morbid (severe) obesity due to excess calories; E78.5 Hyperlipidemia, unspecified; F32.A Depression, unspecified; F41.9 Anxiety disorder, unspecified; I12.9 Hypertensive chronic kidney disease with stage 1 through stage 4 chronic kidney disease, or unspecified chronic kidney disease; N18.32 Chronic kidney disease, stage 3b; Z68.33 Body mass index [BMI] 33.0-33.9, adult
CPT/HCPCS: 36415; 71045; 76937; 78452; 78582; 80053; 80061; 80307; 81001; 82962; 83036; 83880; 84443; 84484; 85025; 85379; 85610; 85730; 87081; 90686; 93005; 93017; 93306; 93458; 93970; 99152; G0378; J0153; J1815; J2250; Q9956; Q9967